=== PATIENT | female | born 1990 | race American Indian/Alaskan Native ===

== ENCOUNTER 2018-12-06 01:20 | Emergency (ER) | payer OTHER ==
--- NOTE | 2018-12-06 02:48 | ED PDOC ---
HPI: General Adult Time Seen by Provider: 12/06/18 02:30 Chief Complaint (Nursing): Headache Chief Complaint (Provider): HEADACHE AND ITCHINESS History Per: Patient History/Exam Limitations: no limitations Onset/Duration Of Symptoms: Days Current Symptoms Are (Timing): Still Present Severity: Mild Pain Scale Rating Of: 4 Additional History Per: Patient Additional Complaint(s): 27 Y/O FEMALE WITH NO SIGNIFICANT MEDICAL HISTORY PRESENTS TO THE ED WITH MULTIPLE COMPLAINTS: BODYACHES, "INNER BODY ITCHINESS", NASAL CONGESTION, HEADACHE, ITCHY EYES FOR OVER ONE WEEK. ADDITIONALLY PATIENT STATES SHE HAS INTERMITTENT ABD PAIN TO EPIGASTRIUM "BURNING" SENSATION. PATIENT HAS NO MEDICAL DOCTOR AND HAS NOT BEEN SEEN FOR ANY OF THESE SYMPTOMS. PATIENT DENIES RASH, FEVER, NAUSEA AND VOMITING, CHEST PAIN, SHORTNESS OF BREATH. Past Medical History Reviewed: Historical Data, Nursing Documentation, Vital Signs Vital Signs: Last Vital Signs Temp 98.5 F 12/06/18 01:34 Pulse 104 H 12/06/18 01:34 Resp 18 12/06/18 01:34 BP 130/88 12/06/18 01:34 Pulse Ox 97 12/06/18 01:34 [place] Report Viewed: No - Medical History PMH: No Chronic Diseases Denies: Chronic Kidney Disease - Surgical History Surgical History: No Surg Hx, - Family History Family History: States: Unknown Family Hx - Social History Alcohol: None Drugs: Denies - Immunization History Hx Tetanus Toxoid Vaccination: No Hx Influenza Vaccination: No Hx Pneumococcal Vaccination: No - Home Medications Home Medications: Ambulatory Orders Medication Instructions Recorded Fluticasone Nasal [Flonase] 1 spr NS DAILY #1 bottle 12/06/18 Levocetirizine Dihydrochloride 5 mg PO DAILY PRN #30 tablet 12/06/18 [Xyzal] Naproxen [Naprosyn] 500 mg PO Q12H PRN #30 tablet 12/06/18 - Allergies Allergies/Adverse Reactions: Allergies Allergy/AdvReac Type Severity Reaction Status Date / Time No Known Allergies Allergy Verified 12/06/18 01:34 Review of Systems ROS Statement: Except As Marked, All Systems Reviewed And Found Negative Constitutional: Negative for: Fever, Chills, Sweats, Weakness, Malaise Eyes: Positive for: Other (ITCHINESS ) ENT: Positive for: Nose Congestion, Throat Pain. Negative for: Ear Pain, Ear Discharge, Nose Pain, Nose Discharge, Mouth Pain, Mouth Swelling, Throat Swelling, Other Cardiovascular: Negative for: Chest Pain, Palpitations Respiratory: Negative for: Cough, Shortness of Breath, SOB with Exertion, Wheezing Gastrointestinal: Positive for: Abdominal Pain. Negative for: Nausea, Vomiting Genitourinary Female: Negative for: Dysuria Musculoskeletal: Positive for: Leg Pain (bilat knee pain) Skin: Positive for: Other (BODY "ITCHINESS"). Negative for: Rash Physical Exam - Reviewed Nursing Documentation Reviewed: Yes Vital Signs Reviewed: Yes - Physical Exam Appears: Positive for: Well, Non-toxic, No Acute Distress Head Exam: Positive for: ATRAUMATIC, NORMAL INSPECTION, NORMOCEPHALIC Skin: Positive for: Normal Color, Warm. Negative for: Rash Eye Exam: Positive for: Normal appearance, EOMI, PERRL. Negative for: Conjunctival injection ENT: Positive for: Normal ENT Inspection, Pharynx Is (NEG FOR REDNESS, TONSILLAR SWELLING ), TM Is/Are (INTACT WITHOUT REDNESS OR EFFUSION ), Nasal Congestion. Negative for: Hearing Is, Pharyngeal Erythema, Tonsillar Exudate, Tonsillar Swelling Neck: Positive for: Normal, Painless ROM, Supple Cardiovascular/Chest: Positive for: Regular Rate, Rhythm Respiratory: Positive for: CNT, Normal Breath Sounds Gastrointestinal/Abdominal: Positive for: Normal Exam, Bowel Sounds, Soft. Negative for: Tenderness Back: Positive for: Normal Inspection. Negative for: L CVA Tenderness, R CVA Tenderness Extremity: Positive for: Normal ROM, Other (patient complaining of bilat knee pain. neg for swelling or signs of injury, ). Negative for: Tenderness, Deformity, Swelling Neurological/Psych: Positive for: Awake, Alert, Normal Tone, Oriented - Laboratory Results Urine dip results: Positive for: Ketones (trace). Negative for: Leukocyte Esterase, Blood, Nitrate, Glucose, Bilirubin, Protein - ECG O2 Sat by Pulse Oximetry: 97 Medical Decision Making Medical Decision Making: --UA --UPREG --TYLENOL --PEPCID --RE-ASSESS upreg (-) udip (neg) patient states headache has improved. continues complain of bilat knee pain, motrin to be given by nursing. Clinical findings discussed with patient. No further work-up needed in ed. Patient given follow-up information to clinic for further evaluation. Rx given for naproxen. patient states she understands and agrees with plan. Disposition - Clinical Impression Clinical Impression: Environmental allergies, Body aches - Patient ED Disposition Is Patient to be Admitted: No Counseled Patient/Family Regarding: Diagnosis, Need For Followup, Rx Given - Disposition Referrals: [facility] [Outside] Disposition: Routine/Home Disposition Time: 05:00 Condition: GOOD Prescriptions: Fluticasone Nasal [Flonase] 1 spr NS DAILY #1 bottle Levocetirizine Dihydrochloride [Xyzal] 5 mg PO DAILY PRN #30 tablet PRN Reason: Allergy Symptoms Naproxen [Naprosyn] 500 mg PO Q12H PRN #30 tablet PRN Reason: Pain, Moderate (4-7) Instructions: Seasonal Allergies in Adults Print Language: MALAY
[2018-12-06 05:30] VITALS: BP 111/61; PULSE 76; RESP 17; TEMP 98.2; O2SAT 100
== END 2018-12-06 06:19 | disposition home or self-care (01) ==
LOC: H.ER 01:20
DX: T78.40XA Allergy, unspecified, initial encounter (principal)